=== PATIENT | male | born 2005 | race African-American/Black ===

== ENCOUNTER 2024-03-05 19:29 | Emergency (ER) | payer OTHER, SELFPAY ==
--- NOTE | ~2024-03-05 | XR_ITS ---
EXAMINATION: XR FOOT, RIGHT CLINICAL INFORMATION: Acute pain. Trauma. COMPARISON: None available. TECHNIQUE: AP, lateral, and oblique views of the right foot. FINDINGS: There is a nondisplaced fracture extending through the proximal aspect of the first metatarsal bone. The fracture line appears to extend intra-articularly on the oblique projection. There is a nondisplaced fracture through the proximal aspect of the second metatarsal bone. There may be a nondisplaced fracture through the base of the third metatarsal bone as well. No additional fracture is demonstrated. XR/XR foot RT 2V IMPRESSION: There are nondisplaced fractures extending to the proximal aspects of the first and second metatarsal bones. There may be a fracture through the base of the third metatarsal bone as well.
--- NOTE | ~2024-03-05 | XR_ITS ---
EXAMINATION: XR ANKLE, RIGHT CLINICAL INFORMATION: Acute pain. Trauma. COMPARISON: None available. TECHNIQUE: 2 views of the right ankle. FINDINGS: There is a nondisplaced fracture extending through the proximal aspect of the first metatarsal bone. The distal tibia and distal fibula are intact. The ankle mortise is maintained. The soft tissue surrounding the ankle is normal in appearance. XR/XR ankle RT 2V IMPRESSION: There is a nondisplaced fracture extending through the proximal aspect of the first metatarsal bone.
[2024-03-05 19:36] VITALS: BP 117/92; PULSE 94; RESP 18; TEMP 36.7; O2SAT 99; BMI 21.4
--- NOTE | 2024-03-05 19:51 | ED.GENADULT ---
HPI - General Adult General Chief complaint: Extremity Injury, Lower Stated complaint: rt pain/bench fell on it Time Seen by Provider: 03/06/24 00:33 Source: patient Mode of arrival: ambulatory Limitations: no limitations History of Present Illness HPI narrative: 19 yo male at [facility] bench fell on R foot now has pain happened after kids were messing around on bench complaint: r foot pain Onset (ago): minute(s) ([employer]) Location: right and lower extremity Radiation: non-radiation Severity: moderate Quality: aching Pain Consistency: constant Relieving factors: immobilization Exacerbating factors: movement Associated symptoms: denies other symptoms Treatments prior to arrival: cold therapy Related Data Previous Rx's ?Medication ?Instructions ?Recorded cyclobenzaprine 10 mg tablet 10 mg PO TID PRN muscle spasm #20 03/06/24 tabs ibuprofen 600 mg tablet 600 mg PO Q6H PRN pain #30 tabs 03/06/24 Allergies Allergy/AdvReac Type Severity Reaction Status Date / Time No Known Allergies Allergy Verified 03/05/24 19:39 Review of Systems Review of Systems: Constitutional : No Fever, No Chills ENT/Mouth : No Ear Pain, No Hoarseness, No sore throat Eyes: No Eye Pain, No Swelling, No Redness, No Foreign Body Cardiovascular : No Chest Pain, No SOB Respiratory : No Cough, No Dyspnea Gastrointestinal : No Nausea, No Vomiting, No Diarrhea, No abdominal Pain Genitourinary : No Dysuria, No Hematuria Musculoskeletal : positive joint pain, No Myalgias, pos Joint Swelling Skin : No Skin lacerations, No rash Neuro : No Weakness, No Numbness, No Loss of Consciousness, No Dizziness, No Headache All other systems reviewed and are negative [facility] Past Medical History Attestation statement: The following information was validated with the patient. Source: old records reviewed Medical History No pertinent past medical history Social History Social History (Updated 03/06/24 @ 00:59 by Parvni Barrientos DO) Patient Tobacco Use Status: Never used Tobacco Advance Directives: No Advance Directives Information Provided: No Do you have a plan to hurt others: No Plan Physical Exam ED Vital Signs: Vital Signs - 24 hr 03/05/24 19:36 03/05/24 22:07 03/06/24 00:31 Temperature 98.1 F 98.4 F 98.1 F Pulse Rate 94 81 84 Respiratory Rate 18 18 17 Blood Pressure 117/92 H 117/73 137/70 Pulse Oximetry 99 100 97 Oxygen Delivery Method Room Air Room Air Room Air 03/06/24 00:58 Temperature 98.1 F Pulse Rate 84 Respiratory Rate 17 Blood Pressure 137/70 Pulse Oximetry 97 Oxygen Delivery Method Room Air BMI result Body Mass Index 21.4 Appearance: Alert. Oriented X3. No acute distress. Eyes: Pupils equal, round and reactive to light. ENT: Pharynx normal. Neck: Normal inspection. Neck supple. CVS: Normal heart rate and rhythm. Pulses normal. Respiratory: No respiratory distress. Breath sounds normal. Abdomen: Soft and non-tender. Skin: Skin warm and dry. Normal skin color. Extremities: No lower extremity edema. R foot ttp along dorsum NV intact Neuro: Oriented X 3. No motor deficit. No sensory deficit. Course Course Course Narrative: RME: Triage by KARINA Bolivar. Patient presents to ED for right foot pain after park bench fell on his foot. Patient denies any other trauma. Right foot positive for tenderness on palpation. X-ray ordered. Vascular motor neuro exam intact. Medications Administered Discontinued Medications Generic Name Dose Route Start Last Admin Trade Name Freq PRN Reason Stop Dose Admin Acetaminophen 975 mg 03/06/24 00:28 03/06/24 00:37 Acetaminophen 325 Mg Tablet PO 03/06/24 00:29 975 mg ONCE ONE Administration Procedures Orthopedic Splinting/Casting Injury #1: Side: right Lower Extremity Injury Location: foot Lower Extremity Immobilizer: posterior splint Other Orthopedic Equipment: crutches Additional Comments: NV intact Medical Decision Making Medical Decision Making [facility] Narrative: 19 yo male with bench that fell on foot and has pain to top of foot he is NV intact at this time will need xrays to evaluate for fracture no other injuries reported. Differential Diagnosis Differential Diagnoses: The differential diagnosis associated with the presentation includes sprain, fracture Independent Interpretation I performed an independent interpretation of an: Plain X-Ray (fracture) Radiology Impression Discussion of test interpretation with radiology: I have reviewed the radiologist's reading. Prescription Management I considered prescription management with: Pain Medication and Other Discharge Plan Discharge Clinical Impression: Foot fracture, right Qualifiers: Encounter type: initial encounter Fracture type: closed Qualified Code(s): S92.901A - Unspecified fracture of right foot, initial encounter for closed fracture Patient Disposition: Home, Self-Care Instructions: Foot Fracture in Adults (ED) Additional Instructions: FINDINGS: There is a nondisplaced fracture extending through the proximal aspect of the first metatarsal bone. The distal tibia and distal fibula are intact. The ankle mortise is maintained. The soft tissue surrounding the ankle is normal in appearance. XR/XR ankle RT 2V IMPRESSION: There is a nondisplaced fracture extending through the proximal aspect of the first metatarsal bone. WEAR SPLINT NO WEIGHT BEARING FOLLOW UP WITH ORTHOPEDICS FOR APPOINTMENT PLEASE CALL Prescriptions: New cyclobenzaprine 10 mg tablet 10 mg PO TID PRN (Reason: muscle spasm) Qty: 20 0RF ibuprofen 600 mg tablet 600 mg PO Q6H PRN (Reason: pain) Qty: 30 0RF Referrals: Parvin Barrientos DO [Emergency Provider] - Virgen Peters PA-C [Physician Puller Machine] - (CALL TO SCHEDULE ORTHO APPOINTMENT) Stand Alone Forms: Work/School Release Interventions: ED Discharge Assessment Last Done: 03/06/24 00:58 Discharge Date/Time: 03/06/24 01:11 Print Language: Turkish
[2024-03-05 22:07] VITALS: BP 117/73; PULSE 81; RESP 18; TEMP 36.9; O2SAT 100
[2024-03-06 00:31] VITALS: BP 137/70; PULSE 84; RESP 17; TEMP 36.7; O2SAT 97
[2024-03-06] MEDS: Acetaminophen 325 MG TABLET 975 MG PO (00:37)
--- NOTE | 2024-03-06 00:40 | PC.NURSE ---
pt verbalizing 10/10 right foot/ankle pain. pt medicated w/ one time dose order - effectiveness pending. pt waiting to see ED provider at this time.
[2024-03-06 00:58] VITALS: BP 137/70; PULSE 84; RESP 17; TEMP 36.7; O2SAT 97
--- NOTE | 2024-03-06 00:58 | PC.NURSE ---
splint applied to right foot/ankle. pt educated on proper use of crutches.
== END 2024-03-06 01:11 | disposition home or self-care (01) ==
PROVIDERS: Emergency Provider Emergency Medicine
DX: S92.901A Unspecified fracture of right foot, initial encounter for closed fracture (principal); W20.8XXA Other cause of strike by thrown, projected or falling object, initial encounter; Y93.89 Activity, other specified; Y92.9 Unspecified place or not applicable; Y99.9 Unspecified external cause status; M79.671 Pain in right foot
CPT/HCPCS: 73600; 73620; 99283; 99284

== ENCOUNTER 2024-03-15 07:48 | Outpatient (REF) | payer OTHER, SELFPAY ==
--- NOTE | ~2024-03-15 | XR_ITS ---
EXAMINATION: XR FOOT, RIGHT CLINICAL INFORMATION: Pain in unspecified foot. COMPARISON: 03/05/2024 TECHNIQUE: AP, lateral, and oblique views of the right foot. FINDINGS: Bone mineralization is normal. Redemonstration of a nondisplaced fracture through the proximal aspect of the first metatarsal. Fracture line extends towards the proximal articular surface as previously noted. Alignment is unchanged. Transverse lucency in the proximal shaft of the second metatarsal redemonstrated, characteristic of a nondisplaced fracture. Alignment is maintained. Redemonstration of previously noted possible nondisplaced fracture through the base of the third metatarsal, difficult to characterize due to overlying bony structures. XR/XR foot RT min 3V IMPRESSION: Redemonstration of nondisplaced fractures of the first and second metatarsals. Possible nondisplaced fracture of the third metatarsal base is difficult to evaluate due to overlying bony structures.
== END 2024-03-15 07:49 | disposition home or self-care (01) ==
LOC: HO.HOSX 07:48
PROVIDERS: Visit Provider Physician Assistant
DX: S92.314A Nondisplaced fracture of first metatarsal bone, right foot, initial encounter for closed fracture (principal); S92.324A Nondisplaced fracture of second metatarsal bone, right foot, initial encounter for closed fracture; S92.334A Nondisplaced fracture of third metatarsal bone, right foot, initial encounter for closed fracture; W20.8XXA Other cause of strike by thrown, projected or falling object, initial encounter; Y93.9 Activity, unspecified; Y92.9 Unspecified place or not applicable; Y99.9 Unspecified external cause status
CPT/HCPCS: 28470; 73630; 99202

== ENCOUNTER 2024-03-15 10:09 | Outpatient (AMB) | payer OTHER, SELFPAY ==
[2024-03-15 10:13] VITALS: BMI 21.4
--- NOTE | 2024-03-15 10:13 | A.OFFVIS_ITS ---
Vital Signs 03/15/24 10:13 Height 5 ft 9 in Weight 145 lb BMI 21.4 Intake Visit Reasons: FC- RT foot, initial encounter for closed fracture Intake Note: Kamaljit is a 19 year old male who presents today for a evaluation of his right foot injury, DOI 03/06/24. He states that he was at [employer] [facility] [employer], where kids were messing around on the bench which lead the bench to fall on his right foot. Currently he is feeling a little better. He states that he hasn't been taking his pain medication as much. Allergies No Known Allergies Allergy (Verified 03/15/24 10:13) HPI HPI FC- RT foot, initial encounter for closed fracture: Details: 19-year-old male who presents in the office today, as a new patient, for an evaluation of right foot pain. Patient presented to the ED on 03/05/2024 status post a bench at the park fell on his right foot. X-rays were obtained. The patient was placed in a posterior splint and given crutches. He was instructed to remain non-weight bearing until he was seen in our office. Patient was prescribed Cyclobenzaprine 10 mg PO TID PRN and Ibuprofen 600 mg PO Q6H PRN. While in the office today the patient reports he was at [employer] when some kids were messing with a bench, which lead to it falling on his right foot. He states he is feeling slightly better. He confirms a decrease in the use of pain medication. [facility] Medical History No pertinent past medical history Social History (Updated 03/15/24 @ 10:24 by Sherwin Loaiza) Patient Tobacco Use Status: Never used Tobacco Current occupation: [employer] Review of Systems Const All systems reviewed & are unremarkable except as noted in HPI and below Physical Exam Vital Signs: BMI result Body Mass Index 21.4 Const General: cooperative and no acute distress Orientation/consciousness: patient oriented x3 Resp Effort & Inspection: normal respiratory effort and able to speak in complete sentences Cardio Peripheral pulses: Peripheral pulses 2+ throughout Skin General skin exam: no rashes or lesions noted Neuro General: patient oriented x3 Extrem Other: Right foot: Normal to inspections. No ecchymosis or erythema. Mild edema on the dorsal aspect of the right foot. Tenderness to palpation over the first, second, and third metatarsals. Full ROM of the ankle without deficits. Able to flex and extend to end range of the toes. Sensation intact. Pedal pulse intact. Office Procedures Casting/Splints Other Cast (shorty short leg cast) Procedure code (CPT) selection complete Fracture Care Fracture Billing Code: Fracture Billing Code Assessment & Plan Assessment & Plan (1) Nondisplaced fracture of first right metatarsal bone: Code(s): S92.314A - Nondisplaced fracture of first metatarsal bone, right foot, initial encounter for closed fracture Category: Medical Qualifiers: Encounter type: initial encounter Fracture type: closed Qualified Code(s): S92.314A - Nondisplaced fracture of first metatarsal bone, right foot, initial encounter for closed fracture (2) Fracture of second metatarsal bone of right foot: Code(s): S92.321A - Displaced fracture of second metatarsal bone, right foot, initial encounter for closed fracture Category: Medical Qualifiers: Encounter type: initial encounter Fracture alignment: nondisplaced Fracture type: closed Qualified Code(s): S92.324A - Nondisplaced fracture of second metatarsal bone, right foot, initial encounter for closed fracture (3) Fracture of third metatarsal bone of right foot: Code(s): S92.331A - Displaced fracture of third metatarsal bone, right foot, initial encounter for closed fracture Category: Medical Qualifiers: Encounter type: initial encounter Fracture alignment: nondisplaced Fracture type: closed Qualified Code(s): S92.334A - Nondisplaced fracture of third metatarsal bone, right foot, initial encounter for closed fracture Plan Mr. Son is a 19-year-old male who presents in the office today, as a new patient, for an evaluation of right foot pain. Patient presented to the ED on 03/05/2024 status post a bench at the park fell on his right foot. X-rays were obtained. The patient was placed in a posterior splint and given crutches. He was instructed to remain non-weight bearing until he was seen in our office. Patient was prescribed Cyclobenzaprine 10 mg PO TID PRN and Ibuprofen 600 mg PO Q6H PRN. While in the office today the patient reports he was at [employer] when some kids were messing with a bench, which lead to it falling on his right foot. He states he is feeling slightly better. He confirms a decrease in the use of pain medication. Patient was placed in a shorty short leg cast, custom made. He will remain non- weight bearing with the use of crutches. Follow up will be in 3 weeks with repeat x-rays, or sooner if needed. X-rays of the right foot which were obtained while in the office today and were reviewed by me, Virgen Peters PA-C, redemonstrated nondisplaced fractures extending to the proximal aspects of the first, second and third metatarsal bones. X-rays of the right foot, obtained on 03/05/2024, revealed: There are nondisplaced fractures extending to the proximal aspects of the first and second metatarsal bones. There may be a fracture through the base of the third metatarsal bone as well. Orders: Orders XR foot RT min 3V Today M79.673 - Pain in unspecified foot Patient Instructions: Scribed by Shanti Crockett medical scheduler, for Virgen Peters PA-C on 03/15/2024 at 10:11 am, EST. Coding Level of Care Code New Pt Level 4 (08835) Diagnoses Closed nondisplaced fracture of first metatarsal bone of right foot, initial encounter S92.314A Encounter type: initial encounter Fracture type: closed Closed nondisplaced fracture of second metatarsal bone of right foot, initial encounter S92.324A Encounter type: initial encounter Fracture alignment: nondisplaced Fracture type: closed Closed nondisplaced fracture of third metatarsal bone of right foot, initial encounter S92.334A Encounter type: initial encounter Fracture alignment: nondisplaced Fracture type: closed CPT Codes Fracture Care - Fracture Billing Code: Fracture Billing Code ([id number])
== END 2024-03-15 11:14 | disposition home or self-care (01) ==
PROVIDERS: Visit Provider Physician Assistant
DX: S92.314A Nondisplaced fracture of first metatarsal bone, right foot, initial encounter for closed fracture (principal); S92.324A Nondisplaced fracture of second metatarsal bone, right foot, initial encounter for closed fracture; S92.334A Nondisplaced fracture of third metatarsal bone, right foot, initial encounter for closed fracture
CPT/HCPCS: 28470; 99204

== ENCOUNTER 2024-03-19 13:32 | Outpatient (AMB) | payer OTHER, SELFPAY ==
--- NOTE | 2024-03-19 14:24 | MHC.OFFVIS ---
Intake Visit Reasons: OV-RT foot, initial encounter-cast change Allergies No Known Allergies Allergy (Verified 03/15/24 10:13) HPI HPI OV-RT foot, initial encounter-cast change: Details: 19-year-old male who returns to the office today for a cast change s/p right foot fracture, 03/05/24. [facility] Medical History No pertinent past medical history Social History (Updated 03/15/24 @ 10:24 by Sherwin Loaiza) Patient Tobacco Use Status: Never used Tobacco Current occupation: [employer] Review of Systems Const All systems reviewed & are unremarkable except as noted in HPI and below Physical Exam Extrem Other: Right foot: Normal to inspection. He does have mild tenderness over the great toe. No swelling. NVI. Office Procedures Casting/Splints [id number] Leg Cast Application Procedure code (CPT) selection complete Assessment & Plan Assessment & Plan (1) Nondisplaced fracture of first right metatarsal bone: Code(s): S92.314A - Nondisplaced fracture of first metatarsal bone, right foot, initial encounter for closed fracture Category: Medical Qualifiers: Encounter type: initial encounter Fracture type: closed Qualified Code(s): S92.314A - Nondisplaced fracture of first metatarsal bone, right foot, initial encounter for closed fracture (2) Fracture of second metatarsal bone of right foot: Code(s): S92.321A - Displaced fracture of second metatarsal bone, right foot, initial encounter for closed fracture Category: Medical Qualifiers: Encounter type: initial encounter Fracture alignment: nondisplaced Fracture type: closed Qualified Code(s): S92.324A - Nondisplaced fracture of second metatarsal bone, right foot, initial encounter for closed fracture (3) Fracture of third metatarsal bone of right foot: Code(s): S92.331A - Displaced fracture of third metatarsal bone, right foot, initial encounter for closed fracture Category: Medical Qualifiers: Encounter type: initial encounter Fracture alignment: nondisplaced Fracture type: closed Qualified Code(s): S92.334A - Nondisplaced fracture of third metatarsal bone, right foot, initial encounter for closed fracture Plan He was placed in a short leg cast in the office today. He will remain non weight bearing until his routine follow-up appointment which he is content with. Patient Instructions: Scribed for Emory Tapia PA-C, by Feliz Cerda medical technician assistant, on 03/19/2024 at 1:30 PM EST.? I, Emory Tapia PA-C, have personally reviewed and agree with the information entered by the scribe. Coding Level of Care Code Global (16567) Diagnoses Closed nondisplaced fracture of first metatarsal bone of right foot, initial encounter S92.314A Encounter type: initial encounter Fracture type: closed Closed nondisplaced fracture of second metatarsal bone of right foot, initial encounter S92.324A Encounter type: initial encounter Fracture alignment: nondisplaced Fracture type: closed Closed nondisplaced fracture of third metatarsal bone of right foot, initial encounter S92.334A Encounter type: initial encounter Fracture alignment: nondisplaced Fracture type: closed CPT Codes Casting - CPT: 69159-[id number] Leg Cast Application ([id number])
== END 2024-03-19 14:44 | disposition home or self-care (01) ==
LOC: HO.HOS 13:32
PROVIDERS: Visit Provider Physician Assistant
DX: S92.314A Nondisplaced fracture of first metatarsal bone, right foot, initial encounter for closed fracture (principal); S92.324A Nondisplaced fracture of second metatarsal bone, right foot, initial encounter for closed fracture; S92.334A Nondisplaced fracture of third metatarsal bone, right foot, initial encounter for closed fracture
CPT/HCPCS: 29405; 99024

== ENCOUNTER → 2024-03-19 13:32 | Outpatient (BNVA) | payer OTHER, SELFPAY | PROVIDERS: Visit Provider Physician Assistant | DX: S92.314D Nondisplaced fracture of first metatarsal bone, right foot, subsequent encounter for fracture with routine healing (principal); S92.324D Nondisplaced fracture of second metatarsal bone, right foot, subsequent encounter for fracture with routine healing; S92.334D Nondisplaced fracture of third metatarsal bone, right foot, subsequent encounter for fracture with routine healing | CPT/HCPCS: 29405; 99212 ==

== ENCOUNTER 2024-04-04 09:07 | Outpatient (REF) | payer OTHER, SELFPAY ==
--- NOTE | ~2024-04-04 | XR_ITS ---
EXAMINATION: XR FOOT, RIGHT CLINICAL INFORMATION: Pain COMPARISON: Prior x-rays including 03/15/2024 TECHNIQUE: AP, lateral, and oblique views of the right foot. FINDINGS: Normal bone mineralization. Stable position and alignment of a nondisplaced fracture through the proximal aspect first metatarsal. Fracture plane is ill-defined. Transverse fracture planes in the proximal shaft of the second metatarsal, is stable in position and alignment. Fracture planes are ill-defined. No definitive third metatarsal fractures identified. No new acute fracture is seen. Alignment is anatomic. XR/XR foot RT min 3V IMPRESSION: Redemonstrated are nondisplaced fractures of the first and second metatarsal in stable alignment. Fracture planes are ill-defined. Possible third metatarsal fracture, seen on the prior x-rays, is not evident in today's study.
== END 2024-04-04 09:08 | disposition home or self-care (01) ==
LOC: HO.HOSX 09:07
PROVIDERS: Visit Provider Physician Assistant
DX: S92.314D Nondisplaced fracture of first metatarsal bone, right foot, subsequent encounter for fracture with routine healing (principal); S92.324D Nondisplaced fracture of second metatarsal bone, right foot, subsequent encounter for fracture with routine healing; S92.334D Nondisplaced fracture of third metatarsal bone, right foot, subsequent encounter for fracture with routine healing
CPT/HCPCS: 73630; 99212

== ENCOUNTER 2024-04-04 10:24 | Outpatient (AMB) | payer OTHER, SELFPAY ==
--- NOTE | 2024-04-04 10:49 | MHC.OFFVIS ---
Intake Visit Reasons: OV - right metatarsal fx, DOI 03/06/24 Intake Note: Kamaljit is a 19 year old male who presents today for a follow up of his right metatarsal fx, DOI 03/06/24. Cast was removed and x rays were updated. He states doing a little better, however still having some pain on top of his foot. Patient is able to wiggle his toes. Denies numbness and tingling. Allergies No Known Allergies Allergy (Verified 04/04/24 10:51) HPI HPI OV - right metatarsal fx, DOI 03/06/24: Details: 19-year-old male who presents in the office today for a follow-up of right foot first, second, and third metatarsal fractures, which occurred on 03/05/2024 status post a bench at the park falling on his right foot. I last saw the patient in the office on 03/15/2024 when the patient was placed in a shorty short leg cast and was instructed to remain non-weight bearing with the use of crutches. While in the office today the patient reports he is doing a little better, however, still having pain on the top of his foot. He confirms being able to wiggle his toes. He denies numbness or tingling. [facility] Medical History No pertinent past medical history Social History (Updated 03/15/24 @ 10:24 by Sherwin Loaiza) Patient Tobacco Use Status: Never used Tobacco Current occupation: [employer] Review of Systems Const All systems reviewed & are unremarkable except as noted in HPI and below Physical Exam Const General: cooperative, healthy appearing and no acute distress Resp Effort & Inspection: normal respiratory effort and able to speak in complete sentences Cardio Rate: regular rate Peripheral pulses: Peripheral pulses 2+ throughout GI Palpation (GI): Soft to palpation Skin Lesions: no lesions Rashes: no rashes Extrem Other: Right foot/ankle: Normal to inspection. No ecchymosis, erythema, or edema. Patient is able to demonstrate dorsiflexion, plantar flexion, pronation and supination. Negative anterior drawer. Sensation intact. Pedal Pulse intact. Assessment & Plan Assessment & Plan (1) Nondisplaced fracture of first right metatarsal bone: Code(s): S92.314A - Nondisplaced fracture of first metatarsal bone, right foot, initial encounter for closed fracture Category: Medical Qualifiers: Encounter type: initial encounter Fracture type: closed Qualified Code(s): S92.314A - Nondisplaced fracture of first metatarsal bone, right foot, initial encounter for closed fracture (2) Fracture of second metatarsal bone of right foot: Code(s): S92.321A - Displaced fracture of second metatarsal bone, right foot, initial encounter for closed fracture Category: Medical Qualifiers: Encounter type: initial encounter Fracture alignment: nondisplaced Fracture type: closed Qualified Code(s): S92.324A - Nondisplaced fracture of second metatarsal bone, right foot, initial encounter for closed fracture (3) Fracture of third metatarsal bone of right foot: Code(s): S92.331A - Displaced fracture of third metatarsal bone, right foot, initial encounter for closed fracture Category: Medical Qualifiers: Encounter type: initial encounter Fracture alignment: nondisplaced Fracture type: closed Qualified Code(s): S92.334A - Nondisplaced fracture of third metatarsal bone, right foot, initial encounter for closed fracture Plan Mr. Son is a 19-year-old male who presents in the office today for a follow-up of right foot first, second, and third metatarsal fractures, which occurred on 03/05/2024 status [place] bench [place] the park falling on his right foot. I last saw the patient in the office on 03/15/2024 when the patient was placed in a shorty short leg cast and was instructed to remain non-weight bearing with the use of crutches. While in the office today the patient reports he is doing a little better, however, still having pain on the top of his foot. He confirms being able to wiggle his toes. He denies numbness or tingling. The patient will be placed in a short walking boot, off the shelf. He will remain non-weight bearing for the next two weeks. He will then progress to partial weight bearing. Follow-up will be in four weeks with repeat x-rays, or sooner if needed. X-rays of the right foot which were obtained while in the office today and were reviewed by me, Virgen Peters PA-C, revealed routine healing of a right first, second, and third metatarsal fractures. Orders: Orders XR foot RT min 3V Today M79.673 - Pain in unspecified foot Patient Instructions: Scribed by Shanti Crockett medical receptionist medical assistant, for Virgen Fran LOVE on 04/04/2024 at 10:35 am, EST. Coding Level of Care Code Global (86624) Diagnoses Closed nondisplaced fracture of first metatarsal bone of right foot, initial encounter S92.314A Encounter type: initial encounter Fracture type: closed Closed nondisplaced fracture of second metatarsal bone of right foot, initial encounter S92.324A Encounter type: initial encounter Fracture alignment: nondisplaced Fracture type: closed Closed nondisplaced fracture of third metatarsal bone of right foot, initial encounter S92.334A Encounter type: initial encounter Fracture alignment: nondisplaced Fracture type: closed
== END 2024-04-04 11:20 | disposition home or self-care (01) ==
PROVIDERS: Visit Provider Physician Assistant
DX: S92.314A Nondisplaced fracture of first metatarsal bone, right foot, initial encounter for closed fracture (principal); S92.324A Nondisplaced fracture of second metatarsal bone, right foot, initial encounter for closed fracture; S92.334A Nondisplaced fracture of third metatarsal bone, right foot, initial encounter for closed fracture
CPT/HCPCS: 99024

== ENCOUNTER 2024-05-02 09:15 | Outpatient (AMB) | payer OTHER, SELFPAY ==
--- NOTE | 2024-05-02 09:24 | MHC.OFFVIS ---
Vital Signs 05/02/24 09:27 Height 5 ft 9 in Weight 145 lb BMI 21.4 Intake Visit Reasons: OV - right metatarsal fx, DOI 03/06/24 Intake Note: Kamaljit is a 19 year old male who presents today for a follow up of his right metatarsal fx, DOI 03/06/24. Patient came in today with out his walking boot. He states that his foot feels better and hasn't shown any signs of pain. Sometimes when he is walking too much or standing for too long he tends to get some discomfort/pain on top of his foot. Allergies No Known Allergies Allergy (Verified 05/02/24 09:26) HPI HPI OV - right metatarsal fx, DOI 03/06/24: Details: 19-year-old male who presents in the office today for a follow-up of right foot first, second, and third metatarsal fractures, which occurred on 03/05/2024 status [place] his right foot. I last saw the patient in the office on 04/04/2024, when he was placed in a short walking boot and was instructed to remain non-weight bearing for the next two weeks then progress to partial weight bearing.? While in the office today, he presents WBAT and without the boot. The patient reports that he is doing better, however he does have some mild pain in the anterior aspect of the right foot. He is able to wiggle his toes but unable to stand for extended period due to pain. Denies numbness and tingling sensation in the right foot. [facility]LY [facility] Medical History No pertinent past medical history Social History (Updated 03/15/24 @ 10:24 by Sherwin Loaiza) Patient Tobacco Use Status: Never used Tobacco Current occupation: [employer] Review of Systems Const All systems reviewed & are unremarkable except as noted in HPI and below Physical Exam Vital Signs: BMI result Body Mass Index 21.4 Const General: cooperative, healthy appearing and no acute distress Resp Effort & Inspection: normal respiratory effort and able to speak in complete sentences Cardio Rate: regular rate Peripheral pulses: Peripheral pulses 2+ throughout GI Palpation (GI): Soft to palpation Skin Lesions: no lesions Rashes: no rashes Extrem Other: Right foot/ankle: Mild tendernss to palpation over the first and second metatarsal at the fracture sites. Normal to inspection. No ecchymosis, erythema, or edema. Patient is able to demonstrate dorsiflexion, plantar flexion, pronation and supination. Negative anterior drawer. Sensation intact. Pedal Pulse intact. Assessment & Plan Assessment & Plan (1) Nondisplaced fracture of first right metatarsal bone: Code(s): S92.314A - Nondisplaced fracture of first metatarsal bone, right foot, initial encounter for closed fracture Category: Medical Qualifiers: Encounter type: initial encounter Fracture type: closed Qualified Code(s): S92.314A - Nondisplaced fracture of first metatarsal bone, right foot, initial encounter for closed fracture (2) Fracture of second metatarsal bone of right foot: Code(s): S92.321A - Displaced fracture of second metatarsal bone, right foot, initial encounter for closed fracture Category: Medical Qualifiers: Encounter type: initial encounter Fracture alignment: nondisplaced Fracture type: closed Qualified Code(s): S92.324A - Nondisplaced fracture of second metatarsal bone, right foot, initial encounter for closed fracture (3) Fracture of third metatarsal bone of right foot: Code(s): S92.331A - Displaced fracture of third metatarsal bone, right foot, initial encounter for closed fracture Category: Medical Qualifiers: Encounter type: initial encounter Fracture alignment: nondisplaced Fracture type: closed Qualified Code(s): S92.334A - Nondisplaced fracture of third metatarsal bone, right foot, initial encounter for closed fracture Plan: ? Plan Mr. Son is a 19-year-old male who presents in the office today for a follow-up of right foot first, second, and third metatarsal fractures, which occurred on 03/05/2024 status [place] bench at the park falling on his right foot. I last saw the patient in the office on 04/04/2024, when he was placed in a short walking boot and was instructed to remain non-weight bearing for the next two weeks then progress to partial weight bearing.? While in the office today, he presents WBAT and without the boot. The patient reports that he is doing better, however he does have some mild pain in the anterior aspect of the right foot. He is able to wiggle his toes but unable to stand for extended period due to pain. Denies numbness and tingling sensation in the right foot The patient was provided with a work note to sit and stand as needed for the next two weeks and then he can return back full-time regular duty with no restrictions. I discourage any high impact activities, like running for an additional two weeks. He can weight bear as tolerated. My business card was given to the patient today. If he is not happy with his progression or has concerns, he can reach out to the office, and I will be happy to see him. Otherwise, follow-up will be PRN, or sooner if needed. ? X-rays of the right foot which were obtained while in the office today and were reviewed by me, Virgen Peters PA-C, revealed routine healing of?the first, second?and third metatarsal fractures. Orders: Orders XR foot RT min 3V Today M79.673 - Pain in unspecified foot Patient Instructions: Scribed by Sally Lentz medical artist, for Virgen Peters PA-C on 05/02/2024 at?9:30 AM EST? Coding Level of Care Code Global (29123) Diagnoses Closed nondisplaced fracture of first metatarsal bone of right foot, initial encounter S92.314A Encounter type: initial encounter Fracture type: closed Closed nondisplaced fracture of second metatarsal bone of right foot, initial encounter S92.324A Encounter type: initial encounter Fracture alignment: nondisplaced Fracture type: closed Closed nondisplaced fracture of third metatarsal bone of right foot, initial encounter S92.334A Encounter type: initial encounter Fracture alignment: nondisplaced Fracture type: closed
[2024-05-02 09:27] VITALS: BMI 21.4
== END 2024-05-02 09:33 | disposition home or self-care (01) ==
PROVIDERS: Visit Provider Physician Assistant
DX: S92.314A Nondisplaced fracture of first metatarsal bone, right foot, initial encounter for closed fracture (principal); S92.324A Nondisplaced fracture of second metatarsal bone, right foot, initial encounter for closed fracture; S92.334A Nondisplaced fracture of third metatarsal bone, right foot, initial encounter for closed fracture
CPT/HCPCS: 99024

== ENCOUNTER 2024-05-02 13:01 | Outpatient (REF) | payer OTHER, SELFPAY ==
--- NOTE | ~2024-05-02 | XR_ITS ---
EXAMINATION: XR FOOT, RIGHT CLINICAL INFORMATION: Pain in the foot COMPARISON: Multiple prior examinations most recent 04/04/2024 TECHNIQUE: AP, lateral, and oblique views of the right foot. FINDINGS: There is a nondisplaced transverse fracture in the proximal diaphysis of the second metatarsal with surrounding callus. The callus has matured/remodeled since the prior exam There is a transverse slightly oblique fracture line along the proximal metaphysis of the first tarsal with minimal callus formation. Fracture line is less distinct compared with the aforementioned fracture. Remaining bones joints and soft tissues are unremarkable. XR/XR foot RT min 3V IMPRESSION: 1. Continuing healing fractures of the proximal first and second metatarsals. 2. No acute abnormality of the foot.
== END 2024-05-02 13:02 | disposition home or self-care (01) ==
LOC: HO.HOSX 13:01
PROVIDERS: Visit Provider Physician Assistant
DX: M79.671 Pain in right foot (principal); S92.314D Nondisplaced fracture of first metatarsal bone, right foot, subsequent encounter for fracture with routine healing; S92.324D Nondisplaced fracture of second metatarsal bone, right foot, subsequent encounter for fracture with routine healing; S92.334D Nondisplaced fracture of third metatarsal bone, right foot, subsequent encounter for fracture with routine healing; W08.XXXD Fall from other furniture, subsequent encounter
CPT/HCPCS: 73630; 99212